=== PATIENT | female | born 1940 | race Caucasian/White ===

== ENCOUNTER 2018-10-14 03:59 | Emergency (ER) | payer MEDICARE ==
[~2018-10-14] VITALS: Ht 167.6 cm; Wt 61.2 kg
[2018-10-14] MEDS ORDERED: ASPIRIN 81 MG CHEW (CHILDREN'S ASA) ONE (04:00)
[2018-10-14] MEDS ORDERED: NITROGLYCERIN 0.4 MG SL TABS BTL 25'S SL ONE (04:00)
[2018-10-14] MEDS: NITROGLYCERIN 0.4 MG SL TABS BTL 25'S SL PRN ×3 (04:07→04:17)
[2018-10-14] MEDS ORDERED: ASPIRIN 81 MG CHEW (CHILDREN'S ASA) PO ONE (04:15)
[2018-10-14 04:17] LABS: BASOPHILS % (AUTO) 0 % (0-10); EOSINOPHILS # (AUTO) 0.1 10^3/uL (0.0-0.3); EOSINOPHILS % (AUTO) 1 % (0-10); HEMATOCRIT 42 % (35-52); HEMOGLOBIN 13.9 G/DL (11.5-16.0); LYMPHOCYTES # (AUTO) 2.8 X 10^3 (1.0-4.0); LYMPHOCYTES % (AUTO) 30 % (12-44); MEAN CORPUSCULAR HEMOGLOBIN 28 PG (25-34); MEAN CORPUSCULAR HGB CONC 33 G/DL (32-36); MEAN CORPUSCULAR VOLUME 84 FL (80-99); MEAN PLATELET VOLUME 10.3 FL (7.4-10.4); MONOCYTES # (AUTO) 0.7 X 10^3 (0.0-1.0); MONOCYTES % (AUTO) 7 % (0-12); NEUTROPHILS # (AUTO) 5.5 X 10^3 (1.8-7.8); NEUTROPHILS % (AUTO) 61 % (42-75); PLATELET COUNT 168 10^3/uL (130-400); RED CELL DISTRIBUTION WIDTH 15.3 % (10.0-14.5); WHITE BLOOD COUNT 9.1 10^3/uL (4.3-11.0)
[2018-10-14 04:27] LABS: INR 0.9 (0.8-1.4); PROTHROMBIN TIME PATIENT 12.1 SEC (12.2-14.7)
[2018-10-14] MEDS ORDERED: fentaNYL INJECTION 100 MCG/2 ML AMP IVP STA ×2 (04:31→06:16)
[2018-10-14] MEDS ORDERED: PANTOPRAZOLE 40 MG (PROTONIX) VIAL IV STA (04:31)
[2018-10-14 04:47] LABS: ALANINE AMINOTRANSFERASE 29 U/L (0-55); ALBUMIN 4.3 GM/DL (3.2-4.5); ALKALINE PHOSPHATASE 65 U/L (40-136); AMYLASE 39 U/L (25-125); BILIRUBIN,TOTAL 0.7 MG/DL (0.1-1.0); BUN/CREATININE RATIO 18; CALCIUM 10.3 MG/DL (8.5-10.1); CARBON DIOXIDE 25 MMOL/L (21-32); CHLORIDE 109 MMOL/L (98-107); CREATINE KINASE 31 U/L (29-168); CREATININE SERUM 0.83 MG/DL (0.60-1.30); GFR ESTIMATED > 60; GLUCOSE 113 MG/DL (70-105); LIPASE 67 U/L (8-78); MAGNESIUM 2.3 MG/DL (1.8-2.4); POTASSIUM 3.6 MMOL/L (3.6-5.0); SODIUM 143 MMOL/L (135-145); TOTAL PROTEIN 7.5 GM/DL (6.4-8.2)
[2018-10-14 05:01] LABS: CREATINE KINASE MB 0.5 NG/ML (<6.6); MYOGLOBIN SERUM 27.8 NG/ML (10.0-92.0)
--- NOTE | 2018-10-14 05:29 | Diagnostic Imaging Report ---
INDICATION: Chest pain COMPARISON: None FINDINGS: Single frontal view of the chest demonstrates normal heart size and pulmonary vascularity. The lungs are well aerated and clear. No large pleural effusion or pneumothorax is seen. The visualized osseous structures show no acute abnormalities. IMPRESSION: 1. No acute cardiopulmonary process. Dictated by: Dictated on workstation # [id number]
--- NOTE | 2018-10-14 05:36 | ED Chest Pain ---
General Chief Complaint: Chest Pain Stated Complaint: CHEST PAIN Nursing Triage Note: PT PRESENTS TO THE ED VIA P.O.V, VERBALIZED THAT ON THE EVENING OF THE SHE BEGAN TO EXPERIENCE CHEST DISCOMFORT THAT SHE STATES FELT LIKE INDIGESTION SO SHE USED OTC ANTACIDS. TODAY PRESENTS TO THE ED D/T THE DISCOMFORT INCREASING IN SEVERITY. VERBALIZES MID STERNAL CHEST PAIN. Nursing Sepsis Screen: No Definite Risk Source: patient History of Present Illness Date Seen by Provider: Oct 14, 2018 Time Seen by Provider: 04:00 Initial Comments PT ARRIVES VIA POV FROM HOME C/O CHEST PAIN SINCE LAST EVENING PAIN IS IN CENTER OF CHEST AND RADIATES OUT ALL ACROSS CHEST ALSO RADIATES TO RIGHT NECK, RIGHT JAW AND RIGHT EAR PAIN WOKE HER UP AT 0230 AND WAS SEVERE--RATES PAIN 9/10 AT WORST, RATES 5-6/10 NOW PAIN IS CONSTANT AND WAXES AND WANES IN INTENSITY--INCREASES WITH ACTIVITY DOES FEEL A LITTLE SHORT OF BREATH, AND HURTS TO BREATHE NO NAUSEA/VOMITING NO SWEATS NO SWELLING IN LEGS/ FEET OR PAIN IN CALVES NO FEVER, COUGH OR RECENT ILLNESS TOOK 2 ANTACIDS WITHOUT RELIEF DID TAKE 81 MG ASPIRIN EARLIER WELL NO HISTORY OF SIMILAR NO HISTORY OF CARDIAC PROBLEMS PCP: FT. DONOVAN BOOTH Allergies and Home Medications Allergies Coded Allergies: ampicillin (Verified Allergy, Unknown, 10/14/18) Patient Home Medication List Home Medication List Reviewed: Yes Review of Systems Review of Systems Constitutional: no symptoms reported; No chills, No diaphoresis, No dizziness, No fever EENTM: See HPI Respiratory: See HPI, Shortness of Air, SOA With Exertion Cardiovascular: See HPI, Chest Pain; Denies Edema, Denies Irregular Heart Rate , Denies Lightheadedness, Denies Palpitations, Denies Syncope Gastrointestinal: No Symptoms Reported; Denies Abdominal Pain, Denies Nausea, Denies Vomiting Genitourinary: No Symptoms Reported Musculoskeletal: see HPI Skin: no symptoms reported Psychiatric/Neurological: Headache; Denies Numbness, Denies Paresthesia, Denies Seizure, Denies Tingling, Denies Weakness Endocrine: No Symptoms Reported Hematologic/Lymphatic: No Symptoms Reported Past Azulbne-Ltbxtr-Loktqa Hx Patient Social History Alcohol Use: Denies Use Recreational Drug Use: No Smoking Status: Never a Smoker Recent Foreign Travel: No Contact w/Someone Who Travel: No Recent Infectious Disease Expo: No Recent Hopitalizations: No Seasonal Allergies Seasonal Allergies: No Past Medical History Surgeries: Yes (HYST/OVARIES INTACT; SINUS SURGERY; VAGINAL ADHESIONS/VAGINA STRETCHED; BILATERAL CATARACTS; RIGHT HAND GANGLION CYST X 2; CYST BEHIND LEFT EAR LOB; COLONOSCOPY; EGD; LABIAL ADHESIONS; ) Gallbladder, Hysterectomy Respiratory: No Cardiac: Yes (RAYNAUD'S ) Neurological: Yes (REYNAUDS, MACULAR DEGENERATION) : No POSTIE History: Menopausal Sexually Transmitted Disease: No Genitourinary: No Gastrointestinal: Yes Gastroesophageal Reflux, Gall Bladder Disease Musculoskeletal: Yes (L4/L5 SPONDYLOLISTHESIS; OA; RESTLESS LEG SYNDROME) Degenerate Disk Disease, Arthritis, Chronic Back Pain Endocrine: No HEENT: Yes (MUCOSITIS) Macular Degeneration Cancer: No Psychosocial: No Integumentary: Yes (LICHEN PLANUS; TOENAIL FUNGUS; CELLULITIS OF FACE AND LEFT ARM/AXILLA; MRSA) Blood Disorders: Yes (CHRONIC IDIOPATHIC NEUTROPENIA; "AUTOIMMUNE DISORDER" ) Physical Exam Vital Signs Vital Signs - First Documented Capillary Refill : Less Than 3 Seconds Height, Weight, BMI Height: 5'6.00" Weight: 135lbs. oz. 61.079258ai; BMI Method:Stated General Appearance: No Apparent Distress, Anxious HEENT: PERRL/EOMI Neck: Full Range of Motion, Normal Inspection, Non Tender, Supple Respiratory: Chest Non Tender, Normal Breath Sounds, No Accessory Muscle Use, No Respiratory Distress Cardiovascular: Regular Rate, Rhythm, No Edema, No JVD, No Murmur, Normal Peripheral Pulses Gastrointestinal: Normal Bowel Sounds, No Organomegaly, No Pulsatile Mass, Non Tender, Soft Extremity: Normal Capillary Refill, Normal Inspection, Normal Range of Motion, Non Tender, No Calf Tenderness, No Pedal Edema Neurologic/Psychiatric: Alert, Oriented x3, No Motor/Sensory Deficits, health counselor II- XII Norm as Tested Skin: Normal Color, Warm/Dry; No Rash Progress/Results/Core Measures Results/Orders Lab Results Laboratory Tests Test 10/14/18 04:00 Range/Units White Blood Count 9.1 4.3-11.0 10^3/uL Red Blood Count 5.02 4.35-5.85 10^6/uL Hemoglobin 13.9 11.5-16.0 G/DL Hematocrit 42 35-52 % Mean Corpuscular Volume 84 80-99 FL Mean Corpuscular Hemoglobin 28 25-34 PG Mean Corpuscular Hemoglobin Concent 33 32-36 G/DL Red Cell Distribution Width 15.3 H 10.0-14.5 % Platelet Count 168 130-400 10^3/uL Mean Platelet Volume 10.3 7.4-10.4 FL Neutrophils (%) (Auto) 61 42-75 % Lymphocytes (%) (Auto) 30 12-44 % Monocytes (%) (Auto) 7 0-12 % Eosinophils (%) (Auto) 1 0-10 % Basophils (%) (Auto) 0 0-10 % Neutrophils # (Auto) 5.5 1.8-7.8 X 10^3 Lymphocytes # (Auto) 2.8 1.0-4.0 X 10^3 Monocytes # (Auto) 0.7 0.0-1.0 X 10^3 Eosinophils # (Auto) 0.1 0.0-0.3 10^3/uL Basophils # (Auto) 0.0 0.0-0.1 10^3/uL Prothrombin Time 12.1 L 12.2-14.7 SEC INR Comment 0.9 0.8-1.4 Activated Partial Thromboplast Time 35 24-35 SEC Sodium Level 143 135-145 MMOL/L Potassium Level 3.6 3.6-5.0 MMOL/L Chloride Level 109 H 98-107 MMOL/L Carbon Dioxide Level 25 21-32 MMOL/L Anion Gap 9 5-14 MMOL/L Blood Urea Nitrogen 15 7-18 MG/DL Creatinine 0.83 0.60-1.30 MG/DL Estimat Glomerular Filtration Rate > 60 BUN/Creatinine Ratio 18 Glucose Level 113 H 70-105 MG/DL Calcium Level 10.3 H 8.5-10.1 MG/DL Corrected Calcium 10.1 8.5-10.1 MG/DL Magnesium Level 2.3 1.8-2.4 MG/DL Total Bilirubin 0.7 0.1-1.0 MG/DL Aspartate Amino Transf (AST/SGOT) 27 5-34 U/L Alanine Aminotransferase (ALT/SGPT) 29 0-55 U/L Alkaline Phosphatase 65 40-136 U/L Total Creatine Kinase 31 29-168 U/L Creatine Kinase MB 0.5 <6.6 NG/ML Myoglobin 27.8 10.0-92.0 NG/ML Troponin I < 0.028 <0.028 NG/ML B-Type Natriuretic Peptide 25.2 <100.0 PG/ML Total Protein 7.5 6.4-8.2 GM/DL Albumin 4.3 3.2-4.5 GM/DL Amylase Level 39 25-125 U/L Lipase 67 8-78 U/L My Orders Orders - LANI CASIANO K DO Nitroglycerin 0.4 Mg Btl 25's (Nitrostat (10/14/18 04:00) Aspirin Chewable Tablet (Baby Aspirin Ch (10/14/18 04:00) Cbc With Automated Diff (10/14/18 04:05) Magnesium (10/14/18 04:05) Chest 1 View, Ap/Pa Only (10/14/18 04:05) Ekg Tracing (10/14/18 04:05) Cardiac Profile 1 (10/14/18 04:05) Comprehensive Metabolic Panel (10/14/18 04:05) Myoglobin Serum (10/14/18 04:05) Protime With Inr (10/14/18 04:05) Partial Thromboplastin Time (10/14/18 04:05) O2 (10/14/18 04:05) Monitor-Rhythm Ecg Trace Only (10/14/18 04:05) Lipid Panel (10/15/18 06:00) Saline Lock/Iv-Start (10/14/18 04:05) Creatine Kinase (10/14/18 04:05) Creatine Kinase Mb (10/14/18 04:05) Lipase (10/14/18 04:05) Amylase (10/14/18 04:05) BNP (10/14/18 04:05) Aspirin Chewable Tablet (Baby Aspirin Ch (10/14/18 04:15) Nitroglycerin 0.4 Mg Btl 25's (Nitrostat (10/14/18 04:15) Pantoprazole Injection (Protonix Injecti (10/14/18 04:31) Fentanyl Injection (Sublimaze Injection (10/14/18 04:31) Ct Angio Chest W (10/14/18 05:10) Iohexol Injection (Omnipaque 350 Mg/Ml 1 (10/14/18 06:00) Contrast Received (Contrast Received) (10/14/18 06:00) Ns (Ivpb) (Sodium Chloride 0.9% Ivpb Bag (10/14/18 06:00) Fentanyl Injection (Sublimaze Injection (10/14/18 06:16) Medications Given in ED Current Medications Medications Dose Ordered Sig/Lucy Route Start Time Stop Time Status Last Admin Dose Admin Aspirin 324 mg ONCE ONCE PO 10/14/18 04:15 10/14/18 04:16 DC 10/14/18 04:05 324 MG Iohexol 150 ml ONCE ONCE IV 10/14/18 06:00 10/14/18 06:01 DC 10/14/18 05:58 125 ML Nitroglycerin 1 TAB Q 5 MIN X 3 NEEDED PRN SL 10/14/18 04:15 10/14/18 04:17 0.4 MG Sodium Chloride 100 ml ONCE ONCE IV 10/14/18 06:00 10/14/18 06:01 DC 10/14/18 05:59 80 ML Vital Signs/I&O 10/14/18 10/14/18 10/14/18 04:02 04:02 04:08 Temp 98.2 Pulse 89 Resp 20 B/P (MAP) 160/81 (107) Pulse Ox 98 98 O2 Delivery Room Air Room Air Room Air Blood Pressure Mean: 107 Progress Progress Note : Progress Note MINIMAL RELIEF WITH NTG X 3 MODERATE RELIEF WITH FENTANYL. Initial ECG Impression Date: Oct 14, 2018 Initial ECG Impression Time: 03:56 Initial ECG Rate: 77 Initial ECG Rhythm: Normal Sinus Initial ECG Comparisson: No Previous ECG Available Diagnostic Imaging Comments CXR--NO ACUTE PROCESS, PER RADIOLOGIST REPORT @ 0534 CT CHEST ANGIOGRAM--NO ACUTE PROCESS, NO P.E. PER [facility] VIA FAX @ [id number] Reviewed: Reviewed by Me Departure Communication (Admissions) THIS FACILITY IS CURRENTLY ON DIVERSION 0632--CALLED [facility] ( PT PREFERENCE) ON "DIVERSION". BUT CAN SEND TO ER, ATTEMPTING TO CONTACT ER PHYSICIAN 0640--SPOKE WITH DR. BRADFORD, ACCEPTS PT FOR TRANSFER TO ER. 6515--EMS HERE FOR TRANSPORT. Impression Primary Impression: Chest pain Disposition: XFER SHT-TRM HOSP Condition: Improved (ERASED) Transfer [facility] Method of Transfer: EMS Departure-Patient Inst. Referrals: JAMEL RAMOS MD (PCP/Family) Primary Care Physician LANI CASIANO DO Oct 14, 2018 05:35
[2018-10-14] MEDS ORDERED: NS 100 ML (IVPB) BAG IV ONE (06:00)
[2018-10-14] MEDS ORDERED: RECEIVED CONTRAST (Hold Metformin) IV SCH (06:00)
[2018-10-14] MEDS ORDERED: IOHEXOL 350 MG/ML 150 ML (OMNIPAQUE 350) VIAL IV ONE (06:00)
--- NOTE | 2018-10-14 06:44 | Diagnostic Imaging Report ---
PROCEDURE: CT angiography of the chest with contrast. TECHNIQUE: Multiple contiguous axial images were obtained through the chest after uneventful bolus administration of intravenous contrast. 2D reconstructed CTA MIP acquisitions were also performed. INDICATION: Chest pain. COMPARISON: None FINDINGS: The pulmonary arteries demonstrate no filling defect to reflect pulmonary embolism. The heart size is unremarkable. Thoracic aorta normal in contour. No pathologically enlarged mediastinal lymph nodes. Small low-density nodularity of the thyroid gland. The lung oropeza are clear of infiltrate. No significant pleural effusion. Cholecystectomy clips. Small hiatal hernia. Mildly advanced degenerative changes about the thoracic spine. IMPRESSION: No CTA evidence for pulmonary embolism. Negative for acute abnormality of the chest. A preliminary report was provided by [facility]. Dictated by: Dictated on workstation # [id number]
[2018-10-14 08:00] VITALS: BP 121/70
== END 2018-10-14 08:02 | disposition short-term general hospital (02) ==
LOC: ER 04:01
DX: R07.89 Other chest pain (principal); K21.9 Gastro-esophageal reflux disease without esophagitis; G25.81 Restless legs syndrome; Z86.14 Personal history of Methicillin resistant Staphylococcus aureus infection; Z88.0 Allergy status to penicillin; Z98.890 Other specified postprocedural states; Z90.710 Acquired absence of both cervix and uterus; Z87.19 Personal history of other diseases of the digestive system
CPT/HCPCS: 36415; 71045; 71275; 80053; 82150; 82550; 82553; 83690; 83735; 83874; 83880; 84484; 85025; 85610; 85730; 93005; 93041; 96374; 96375; 96376

== ENCOUNTER → 2019-07-11 | Outpatient (CLI) | payer MEDICARE ==
--- NOTE | 2019-07-11 14:17 | Diagnostic Imaging Report ---
Clinical indications: Patient with chronic low back pain with pain radiating into both lower extremities intermittently, times one year. Exam: X-ray of the lumbar spine, 3 views. Comparison: None. Findings: There is left curvature of the lumbar spine. There is grade 1 anterolisthesis of L4 on L5 with no pars defect. There is severe loss of intervertebral disc height at the L4-L5 and L5-S1 levels. There is facet arthropathy of the lower lumbar spine. There are degenerative spurs seen throughout the lower thoracic spine. Sacroiliac joints show no significant abnormality. Surgical clips are seen overlying the right upper quadrant which could be related to cholecystectomy changes. Impression: Levoscoliosis of the lumbar spine with lumbar spine degenerative disease which is severe at the L4-L5 and L5-S1 levels. MRI of the lumbar spine would better evaluate. Dictated by: Dictated on workstation # [id number]
== END ==
LOC: RAD 13:55
PROVIDERS: ATTEND Pediatrics
DX: M54.42 Lumbago with sciatica, left side (principal); M47.817 Spondylosis without myelopathy or radiculopathy, lumbosacral region; M41.86 Other forms of scoliosis, lumbar region
CPT/HCPCS: 72100

== ENCOUNTER → 2019-07-17 | Outpatient (CLI) | payer MEDICARE ==
--- NOTE | 2019-07-17 17:21 | Diagnostic Imaging Report ---
PROCEDURE: MRI lumbar spine. TECHNIQUE: Multiplanar, multisequence MRI of the lumbar spine was performed without contrast. INDICATION: Back pain. FINDINGS: There is grade 2 spondylolisthesis of L4 on L5 which appears to be on a degenerative basis. Vertebral body heights are well-maintained. There are no marrow signal intensity abnormalities. Conus medullaris is seen at L1 and is normal in appearance. At T12-L1, there is slight loss of disc height and signal intensity and mild facet disease. There is very minimal effacement of the ventral thecal sac and no significant neural foraminal encroachment. At L1-L2, there is mild facet disease however no spinal or neural foraminal encroachment. At L2-L3, there is facet disease and thickening of the ligamentum flavum. There is no significant spinal or neural foraminal encroachment. At L3-L4, there is loss of disc height and signal intensity. There is annular bulging, facet disease and thickening of the ligamentum flavum. There is mild spinal stenosis and minimal encroachment upon the neural foramina. At L4-L5, there is uncovering of the disc. There is broad-based annular bulging, facet disease and thickening of the ligamentum flavum. There is severe central spinal stenosis with marked encroachment upon the lateral recess bilaterally. There is severe right and moderate left neural foraminal encroachment. At L5-S1, there is some annular bulging and facet disease. There is slight effacement of the ventral thecal sac and mild bilateral neural foraminal encroachment. 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 The aorta is nonaneurysmal. Visualized kidneys are unremarkable. IMPRESSION: Moderately severe lumbar spondylosis and multilevel degenerative disc disease as detailed above. Dictated by: Dictated on workstation # [id number]
== END ==
LOC: RAD 16:30
PROVIDERS: ATTEND Pediatrics
DX: M51.36 Other intervertebral disc degeneration, lumbar region (principal); M47.816 Spondylosis without myelopathy or radiculopathy, lumbar region; M51.17 Intervertebral disc disorders with radiculopathy, lumbosacral region
CPT/HCPCS: 72148

== ENCOUNTER 2020-03-24 20:18 | Emergency (ER) | payer MEDICARE ==
[~2020-03-24] VITALS: Ht 164.7 cm; Wt 63.2 kg
--- NOTE | 2020-03-24 20:35 | ED Head Injury ---
General Chief Complaint: Head/Cervical Problems Stated Complaint: OBJECT HIT IN HEAD Source: patient Exam Limitations: no limitations History of Present Illness Date Seen by Provider: Mar 24, 2020 Time Seen by Provider: 20:30 Initial Comments 79 y/o female presents w posterior ESTEVEZ after a head injury earlier today in which she was hit in the forehead by a "front end fertilizer loader". States the impact dazed her, but she did not lose consciousness. Had some nausea which resolved. She went about her day without incident. she does not taking ASA or other blood thinners. Allergies and Home Medications Allergies Coded Allergies: ampicillin (Verified Allergy, Unknown, 10/14/18) Patient Home Medication List Home Medication List Reviewed: Yes Review of Systems Review of Systems Constitutional: No dizziness, No fever, No malaise, No weakness Eyes: No Symptoms Reported; Denies Blindness, Denies Blurred Vision Ears, Nose, Mouth, Throat: denies ear pain, denies nose pain, denies nose discharge, denies throat pain Respiratory: No cough, No short of breath Cardiovascular: No chest pain, No edema, No syncope Gastrointestinal: No abdominal pain, No loss of appetite, No nausea, No vomiting Musculoskeletal: No back pain, No joint pain, No neck pain Skin: see HPI, other (lumb (contusion) right upper forehead) Psychiatric/Neurological: See HPI, Headache; Denies Numbness, Denies Tingling, Denies Weakness Past Aqsswjx-Qcekyy-Xykjes Hx Past Med/Social Hx: Reviewed Nursing Past Med/Soc Hx Patient Social History Recent Foreign Travel: No Contact w/Someone Who Travel: No Recent Hopitalizations: No Seasonal Allergies Seasonal Allergies: No Past Medical History Surgeries: Yes Gallbladder, Hysterectomy Respiratory: No Cardiac: Yes (RAYNAUD'S ) Neurological: Yes (REYNAUDS, MACULAR DEGENERATION) MACHINIST History: Menopausal Sexually Transmitted Disease: No Genitourinary: No Gastrointestinal: Yes Gastroesophageal Reflux, Gall Bladder Disease Musculoskeletal: Yes (L4/L5 SPONDYLOLISTHESIS; OA; RESTLESS LEG SYNDROME) Degenerate Disk Disease, Arthritis, Chronic Back Pain Endocrine: No HEENT: Yes (MUCOSITIS) Macular Degeneration Cancer: No Psychosocial: No Integumentary: Yes (LICHEN PLANUS; TOENAIL FUNGUS; CELLULITIS OF FACE AND LEFT ARM/AXILLA; MRSA) Blood Disorders: Yes (CHRONIC IDIOPATHIC NEUTROPENIA; "AUTOIMMUNE DISORDER" ) Physical Exam Vital Signs Vital Signs - First Documented 03/24/20 20:27 Temp 36.8 Pulse 79 Resp 18 B/P (MAP) 164/80 (108) Pulse Ox 98 O2 Delivery Room Air Capillary Refill : Height, Weight, BMI Height: 5'6.00" Weight: 135lbs. oz. 61.375952kz; BMI Method:Stated General Appearance: WD/WN, no apparent distress HEENT: PERRL/EOMI, normal ENT inspection, TMs normal, pharynx normal, other (contusion right upper forehead) Neck: non-tender, supple Crainal Nerves: normal hearing, normal speech, PERRL Coordination/Gait: normal finger to nose, normal gait Motor/Sensory: no motor deficit, no sensory deficit Skin: normal color, warm/dry Progress/Results/Core Measures Results/Orders My Orders Orders - PILAR DELCID DO Ct Head Wo (03/24/20 20:29) Vital Signs/I&O 03/24/20 03/24/20 20:27 21:02 Temp 36.8 36.8 Pulse 79 79 Resp 18 18 B/P (MAP) 164/80 (108) 164/80 (108) Pulse Ox 98 98 O2 Delivery Room Air Room Air Diagnostic Imaging Diagonstic Imaging: CT Plain Films/CT/US/NM/MRI: head Comments INDICATION: Head injury with developing nausea. CT head: Ventricles and sulci are within normal limits for size. There is no intracranial hemorrhage identified. There is no abnormal mass effect or shift of midline structures. IMPRESSION: Unremarkable CT of the head. Dictated on workstation # [id number] Dict: 03/24/202045 Trans: 03/24/202055 [facility] [id number] Interpreted by: NANDO CABALLERO MD Electronically signed by: Departure Impression Primary Impression: Closed head injury Qualified Codes: S09.90XA - Unspecified injury of head, initial encounter Disposition: 01 HOME, SELF-CARE Condition: Stable Departure-Patient Inst. Referrals: JAMEL RAMOS MD (PCP/Family) Primary Care Physician Patient Instructions: Closed Head Injury (DC) PILAR DELCID DO Mar 24, 2020 20:35
--- NOTE | 2020-03-24 20:57 | Diagnostic Imaging Report ---
PROCEDURE: CT head without contrast. TECHNIQUE: Multiple contiguous axial images were obtained through the brain without the use of intravenous contrast. Auto Exposure Controls were utilized during the CT exam to meet ALARA standards for radiation dose reduction. INDICATION: Head injury with developing nausea. CT head: Ventricles and sulci are within normal limits for size. There is no intracranial hemorrhage identified. There is no abnormal mass effect or shift of midline structures. IMPRESSION: Unremarkable CT of the head. Dictated by: Dictated on workstation # [id number]
[2020-03-24 21:02] VITALS: BP 164/80
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
== END 2020-03-24 21:03 | disposition home or self-care (01) ==
LOC: EDUNIT# 20:18 → ER FS 20:20
DX: S09.90XA Unspecified injury of head, initial encounter (principal); S00.83XA Contusion of other part of head, initial encounter; Z88.0 Allergy status to penicillin; W22.8XXA Striking against or struck by other objects, initial encounter
CPT/HCPCS: 70450